=== PATIENT | male | born 1990 ===

== ENCOUNTER → 2017-05-06 | Outpatient (REF) | LOC: WSOH 13:30 | DX: Z02.89 Encounter for other administrative examinations (principal) ==

== ENCOUNTER → 2017-05-22 | Outpatient (REF) | LOC: WSOH 09:17 | DX: Z02.89 Encounter for other administrative examinations (principal) ==

== ENCOUNTER → 2017-06-04 | Outpatient (REF) | LOC: WSOH 14:45 | DX: Z02.89 Encounter for other administrative examinations (principal) ==